=== PATIENT | male | born 1980 | race Caucasian/White ===

== ENCOUNTER 2017-06-30 20:50 | Emergency (ER) | payer MEDICAID ==
[2017-06-30 20:58] VITALS: RESP 18
--- NOTE | 2017-06-30 22:01 | C.PDOC ---
History Of Present Illness 36 year old male who presents to the ER with a complaint of cough and congestion for the past 4 days. Denies fever or chills. Time Seen by Provider: 06/30/17 21:17 Chief Complaint (Nursing): Cough, Cold, Congestion History Per: Patient History/Exam Limitations: no limitations Onset/Duration Of Symptoms: Days Current Symptoms Are (Timing): Still Present Sick Contacts (Context): None Associated Symptoms: Cough, Nasal Congestion. denies: Fever, Chills Ear Symptoms: Bilateral: None Recent travel outside of the [place]: No Past Medical History Reviewed: Historical Data, Nursing Documentation, Vital Signs Vital Signs: Last Vital Signs Temp 98.4 F 06/30/17 22:10 Pulse 72 06/30/17 22:10 Resp 18 06/30/17 22:10 BP 128/82 06/30/17 22:10 Pulse Ox 99 06/30/17 23:10 - Medical History PMH: Asthma Surgical History: No Surg Hx Family History: States: Unknown Family Hx - Social History Hx Tobacco Use: No Hx Alcohol Use: No Hx Substance Use: No - Immunization History Hx Tetanus Toxoid Vaccination: No Hx Influenza Vaccination: No Hx Pneumococcal Vaccination: No Review Of Systems Constitutional: Negative for: Fever, Chills ENT: Positive for: Nose Congestion Respiratory: Positive for: Cough Gastrointestinal: Negative for: Nausea, Vomiting, Abdominal Pain Skin: Negative for: Rash Physical Exam - Physical Exam Appears: Non-toxic, No Acute Distress Skin: Normal Color, Warm, Dry Head: Atraumatic, Normacephalic Ear(s): Bilateral: Normal Oral Mucosa: Moist Throat: Normal, No Erythema, No Exudate Neck: Normal, Supple Chest: Symmetrical, No Tenderness Cardiovascular: Rhythm Regular, No Murmur Respiratory: Normal Breath Sounds, No Rales, No Rhonchi, No Wheezing Neurological/Psych: Oriented x3, Normal Speech, Normal Cognition ED Course And Treatment O2 Sat by Pulse Oximetry: 99 (Room air) Pulse Ox Interpretation: Normal Progress Note: Patient is resting comfortably, and is in no acute distress. Patient was given Rx and instructed to follow up with PMD in 1-2 days for further evaluation. Disposition Counseled Patient/Family Regarding: Diagnosis, Need For Followup, Rx Given - Disposition Disposition: HOME/ ROUTINE Disposition Time: 21:56 Condition: STABLE Additional Instructions: Please follow up with PMD Take meds as directed Return to ER if worse Prescriptions: Cetirizine HCl [Zyrtec] 10 mg PO DAILY #20 capsule Ibuprofen [Motrin] 600 mg PO Q6H #30 tab Promethazine DM [Phenergan DM Syrup] 10 ml PO QID #120 ml Instructions: Upper Respiratory Infection (ED) Forms: [facility] (Mongolian) - Clinical Impression Clinical Impression: Upper respiratory infection - Scribe Statement The provider has reviewed the documentation as recorded by the Scribyana Irwin All medical record entries made by the Scribe were at my direction and personally dictated by me. I have reviewed the chart and agree that the record accurately reflects my personal performance of the history, physical exam, medical decision making, and the department course for this patient. I have also personally directed, reviewed, and agree with the discharge instructions and disposition.
[2017-06-30 22:10] VITALS: BP 128/82; PULSE 72; TEMP 98.4
[2017-06-30 23:10] VITALS: O2SAT 99
--- NOTE | 2017-07-01 12:36 | CARD ---
APPROVED REPORT EKG Measurement Heart [id number] <Conclusion> Normal sinus rhythm Left axis deviation Minimal voltage criteria for LVH, may be normal variant Abnormal ECG
== END 2017-06-30 22:10 | disposition home or self-care (01) ==
LOC: C.ER 20:50
DX: J06.9 Acute upper respiratory infection, unspecified (principal)

== ENCOUNTER 2018-11-13 14:19 | Emergency (ER) | payer MEDICAID ==
[2018-11-13 14:47] VITALS: RESP 18
--- NOTE | 2018-11-13 15:03 | C.PDOC ---
History Of Present Illness 37 y/o male, w/PMhx of psychiatric illness, presents to ER with mother for evaluation of mild pain to the bottom of his right big toe which has been present for the past 4 weeks. Patient states that he has a callus in the region approx for the past 4 months. Patient reports that he began having intermittent bleeding with clear drainage from the region. Has not taken any medications for symptoms. He was evaluated by repairer evaporator for similar foot wound in the same area over 1 year ago. Denies having purulent drainage, swelling, redness, fever, chills, nausea, vomiting, weakness, numbness, parasthesias, or any other associated symptoms. Time Seen by Provider: 11/13/18 14:54 Chief Complaint (Nursing): Lower Extremity Problem/Injury History Per: Patient History/Exam Limitations: no limitations Onset/Duration Of Symptoms: Days Current Symptoms Are (Timing): Still Present Severity: Moderate Past Medical History Reviewed: Historical Data, Nursing Documentation, Vital Signs Vital Signs: Last Vital Signs Temp 98.3 F 11/13/18 14:42 Pulse 94 H 11/13/18 14:42 Resp 18 11/13/18 14:42 BP 108/69 11/13/18 14:42 Pulse Ox 98 11/13/18 14:42 - Medical History PMH: Asthma Surgical History: No Surg Hx Family History: States: No Known Family Hx - Social History Hx Tobacco Use: No Hx Alcohol Use: No Hx Substance Use: No - Immunization History Hx Tetanus Toxoid Vaccination: No Hx Influenza Vaccination: No Hx Pneumococcal Vaccination: No Review Of Systems Except As Marked, All Systems Reviewed And Found Negative. Constitutional: Negative for: Fever, Chills Eyes: Negative for: Vision Change ENT: Negative for: Nose Congestion, Throat Pain Cardiovascular: Negative for: Chest Pain, Palpitations, Light Headedness Respiratory: Negative for: Cough, Shortness of Breath Gastrointestinal: Negative for: Nausea, Vomiting, Abdominal Pain Genitourinary: Negative for: Dysuria, Frequency Musculoskeletal: Positive for: Foot Pain. Negative for: Neck Pain, Hand Pain Skin: Positive for: Other (wound to right big toe) Neurological: Negative for: Weakness, Numbness, Headache, Dizziness Physical Exam - Physical Exam Appears: Well, Non-toxic, No Acute Distress Skin: Normal Color, Warm, Dry, Other (bottom of 1st digit of right foot: 0.5 cm diameter circular deep ulceration with surrounding callus and small amount of clear drainage, appears chronic, no purulence, no drainage, no redness) Head: Atraumatic, Normacephalic Eye(s): bilateral: Normal Inspection, PERRL, EOMI Nose: Normal Oral Mucosa: Moist Neck: Normal ROM, Supple Chest: Symmetrical Cardiovascular: Rhythm Regular Respiratory: Normal Breath Sounds, No Rales, No Rhonchi, No Wheezing Gastrointestinal/Abdominal: Normal Exam, Soft, No Tenderness Extremity: Normal ROM, No Tenderness, Capillary Refill (<2s), No Deformity, No Swelling Extremity: Bilateral: Atraumatic, No Pedal Edema, Normal Color And Temperature, Normal ROM Pulses: Left Radial: Normal, Right Radial: Normal, Left Dorsalis Pedis: Normal, Right Dorsalis Pedis: Normal Neurological/Psych: Oriented x3, Normal Speech, Normal Motor, Normal Sensation Gait: Steady ED Course And Treatment - Laboratory Results Result Diagrams: 11/13/18 15:18 11/13/18 15:18 Lab Interpretation: No Acute Changes O2 Sat by Pulse Oximetry: 98 (RA) Pulse Ox Interpretation: Normal - Other Rad X-Ray-Right Foot X-Ray: Viewed By Me, Read By Radiologist Interpretation: PROCEDURE: Radiographs of the right great toe. TECHNIQUE:: AP radiograph of the right foot, with oblique and lateral view of the right great toe. COMPARISON: Right foot radiographs performed 12/17/16. FINDINGS: Mild hallux valgus deformity. No acute displaced fracture or dislocation. Marked soft tissue swelling prominently involving the 1st digit. No evidence of radiopaque foreign body. No osseous erosion identified. Soft tissue ulceration noted at the level of the 1st digit at the level of the DIP. IMPRESSION: Soft tissue ulceration noted at the level of the 1st digit at the level of the DIP. Marked soft tissue swelling. Mild hallux valgus deformity. No acute displaced fracture. No osseous erosion identified. Please note that MRI without and with IV contrast is most sensitive in detection of acute osteomyelitis. Medical Decision Making Medical Decision Making: Plan: --Labs --X-Ray-Right Foot --Podiatry consult Updates: Xray negative for any acute findings. Labwork unremarkable. No leukocytosis. Pt afebrile without fever, chills, nausea, or vomiting. Case discussed with podiatry resident Nini who evaluated and reviewed labwork and X-Ray. She states that that there is no need for antibiotics at this time. Patient's wound will be dressed and he was given a surgical shoe and advised to followup with Dr. Rodriguez within 2 days. Patient and mother verbalized understanding and states they will followup as instructed. Diagnostic testing results and plan of care discussed with patient. Strict instructions given regarding importance of followup, and signs/symptoms to return to ER including or any other new/worsening symptoms. Pt verbalized understanding of discussion. Patient is A&Ox3, ambulating with steady gait, with vital signs stable for discharge. Disposition - Disposition Referrals: Jamil Rodriguez DPM [Staff Provider] - Disposition: HOME/ ROUTINE Disposition Time: 16:00 Condition: GOOD Additional Instructions: Keep toe clean, dry, and covered Naproxen daily with food as needed for pain Wear surgical shoe when ambulating Followup with Dr. Rodriguez within 2 days Return to ER with any new/worsening symptoms Prescriptions: Naproxen [Naprosyn] 500 mg PO DAILY PRN #14 tablet PRN Reason: Pain, Moderate (4-7) Instructions: Wound Care (DC) Forms: General Discharge Instructions, [facility] (Welsh) - Clinical Impression Clinical Impression: Callus of foot, Chronic wound of extremity - PA / COTTON EXPERT / Resident Statement MD/DO has reviewed & agrees with the documentation as recorded. - Scribe Statement The provider has reviewed the documentation as recorded by the Scribe Bahman Killian Provider Attestation All medical record entries made by the Scribe were at my direction and personally dictated by me. I have reviewed the chart and agree that the record accurately reflects my personal performance of the history, physical exam, medical decision making, and the department course for this patient. I have also personally directed, reviewed, and agree with the discharge instructions and disposition.
[2018-11-13 15:29] LABS: BASO % 0.8 % (0.0-2.0); EOS # 0.1 K/uL (0.0-0.7); EOS % 1.4 % (0.0-4.0); HEMOGLOBIN 14.5 g/dL (12.0-18.0); LYMPH # 2.8 K/uL (1.0-4.3); LYMPH % 45.1 % (20.0-40.0); MEAN CELL VOLUME 84.6 fL (80.0-94.0); MEAN CORPUSCULAR HEMOGLOBIN 29.5 pg (27.0-31.0); MEAN CORPUSCULAR HGB CONC 34.8 g/dL (33.0-37.0); MEAN PLATELET VOLUME 8.5 fL (7.2-11.7); MONO # 0.5 K/uL (0.0-0.8); MONO % 8.3 % (0.0-10.0); NEUT # 2.8 K/uL (1.8-7.0); NEUT % 44.4 % (50.0-75.0); NRBC % 0.1 % (0.0-2.0); RBC 4.92 Mil/uL (4.40-5.90); RED CELL DISTRIBUTION WIDTH 13.3 % (11.5-14.5); WHITE BLOOD COUNT 6.2 K/uL (4.8-10.8)
[2018-11-13 15:46] LABS: ALB/GLOB RATIO 1.7 (1.0-2.1); ALBUMIN 4.4 g/dL (3.5-5.0); ALT/SGPT 36 U/L (21-72); AST/SGOT 30 U/L (17-59); BLOOD UREA NITROGEN 11 mg/dL (9-20); CALCIUM 8.7 mg/dl (8.6-10.4); GFR NON-AFRICAN AMERICAN > 60
[2018-11-13 16:17] VITALS: BP 117/84; PULSE 77; TEMP 98.5
--- NOTE | 2018-11-13 16:47 | RAD ---
PROCEDURE: Radiographs of the right great toe TECHNIQUE:: AP radiograph of the right foot, with oblique and lateral view of the right great toe. COMPARISON: Right foot radiographs performed 12/17/16 FINDINGS: Mild hallux valgus deformity. No acute displaced fracture or dislocation. Marked soft tissue swelling prominently involving the 1st digit. No evidence of radiopaque foreign body. No osseous erosion identified. Soft tissue ulceration noted at the level of the 1st digit at the level of the DIP. IMPRESSION: Soft tissue ulceration noted at the level of the 1st digit at the level of the DIP. Marked soft tissue swelling. Mild hallux valgus deformity. No acute displaced fracture. No osseous erosion identified. Please note that MRI without and with IV contrast is most sensitive in detection of acute osteomyelitis.
[2018-11-13 17:15] VITALS: O2SAT 98
== END 2018-11-13 16:28 | disposition home or self-care (01) ==
LOC: C.ER 14:19
DX: L84 Corns and callosities (principal); S91.101D Unspecified open wound of right great toe without damage to nail, subsequent encounter; X58.XXXD Exposure to other specified factors, subsequent encounter